=== PATIENT | female | born 1975 | race Caucasian/White ===

== ENCOUNTER 2024-09-22 16:34 | Emergency (ER) | payer OTHER, SELFPAY ==
[2024-09-22 17:31] VITALS: BP 162/94; PULSE 76; RESP 18; TEMP 36.3; O2SAT 100; BMI 35.6
--- NOTE | 2024-09-22 17:36 | EKG_ITS ---
[place] [id number] [place] [id number] Test Date: 2024-09-22 Pat Name: Nevaeh Gonzalez Department: [facility] Room: Gender: Female [employer] Machine: MALLORY KNIGHT : 1975 Requested By: Order Number: [id number] Reading MD: Royce Toirbio MD Measurements Intervals [place] Rate: 67 P: 17 IL: 148 QRS: 35 QRSD: 86 T: 10 QT: 408 QTc: 431 Interpretive Statements Normal sinus rhythm Electronically Signed On 09-22-2024 20:01:04 PDT by Royce Toribio MD
[2024-09-22 18:28] LABS: Add Manual Diff / Slide Review NO; Basophils Absolute Auto 100 /uL (0-100); Basophils Percent Auto 1.3 % (0-2); Eosinophils Absolute Auto 100 /uL (0-450); Eosinophils Percent Auto 1.8 % (2-4); Hematocrit 37.7 % (36-46); Hemoglobin 12.6 g/dL (12.0-16.0); Lymphocytes Absolute Auto 2400 /uL (1100-4500); Lymphocytes Percent Auto 28.9 % (25-40); Mean Corpuscular HGB Conc 33.3 % (30-36); Mean Corpuscular Hemoglobin 29.3 PG (26-34); Mean Corpuscular Volume 87.8 fL (80-100); Monocytes Absolute Auto 400 /uL (0-900); Monocytes Percent Auto 5.4 % (3-14); Neutrophils Absolute Auto 5100 /uL (1500-7000); Neutrophils Percent Auto 62.6 % (50-75); Platelet Count 255 X10^3/uL (150-400); Red Cell Distribution Width 14.1 % (11.6-14.8); White Blood Cell Count 8.2 X10^3/uL (4.5-11.0)
[2024-09-22 18:33] LABS: Alanine Aminotransferase 24 IU/L (<35); Albumin 4.4 g/dL (3.5-5.0); Albumin Globulin Ratio 1.5 (1.0-2.8); Alkaline Phosphatase 70 U/L (38-126); Aspartate Aminotransferase 25 IU/L (14-36); BUN Creatinine Ratio 21.2 (6-22); Bilirubin Total 0.4 mg/dL (0.2-1.3); Blood Urea Nitrogen 18 mg/dL (7-17); Calcium 9.6 mg/dL (8.4-10.2); Carbon Dioxide 23 mmol/L (22-32); Chloride 102 mmol/L (98-107); Estimated Glomerular Filt Rate > 60 mL/min (>60); Globulin 2.9 g/dL (1.7-4.1); Glucose 90 mg/dL (70-100); HEMOLYSIS < 15 (0-50); Lipase 61 U/L (23-300); Potassium 3.8 mmol/L (3.4-5.1); Sodium 136 mmol/L (137-145); Total Protein 7.3 g/dL (6.3-8.2)
[2024-09-22 18:49] VITALS: BP 150/101; PULSE 78; RESP 18; TEMP 36.6; O2SAT 100
[2024-09-23] VITALS (8 sets, daily range): BP systolic 115–142; BP diastolic 63–83; PULSE 66–81; RESP 14–18; O2SAT 97–99
--- NOTE | 2024-09-23 01:25 | ED.ABDPAIN ---
HPI - Abdominal Pain General Chief Complaint: Abdominal Pain Stated Complaint: abd px Time Seen by Provider: 09/23/24 01:25 History of Present Illness HPI narrative: Patient is a healthy 49-year-old female presenting today with left lower quadrant pain. Reports it started while at work she was she was doubled over and quite a bit of pain. No nausea vomiting or diarrhea. Not had any fever. Pain has been pretty constant but coming and going. Denies any sort of flank pain. She also reports that whenever she urinates she is pretty severe pain in her suprapubic area on the left side. But denies painful frequent urination. Related Data Previous Rx's Medication Instructions Recorded amoxicillin 875 mg-potassium 1 tab PO BID #14 tabs 09/23/24 clavulanate 125 mg tablet fluconazole 200 mg tablet 200 mg PO DAILY PRN vaginal 09/23/24 (Diflucan) itching #2 tabs Allergies Allergy/AdvReac Type Severity Reaction Status Date / Time divalproex sodium Allergy Verified 09/22/24 17:31 [From [facility]] Patient History Social History Smoking Status: Former smoker Smoking Status: Former smoker Exam Initial Vital Signs Initial Vital Signs: Vital Signs Temperature 97.3 F L 09/22/24 17:31 Pulse Rate 76 09/22/24 17:31 Respiratory Rate 18 09/22/24 17:31 Blood Pressure 162/94 H 09/22/24 17:31 Pulse Oximetry 100 09/22/24 17:31 Oxygen Delivery Method Room Air 09/22/24 17:31 GENERAL: Alert 49-year-old female and in no acute distress. HEENT: Head atraumatic,EOMI, pupils reactive, face symmetric, moist mucous membranes CARDIOVASCULAR: Regular rate and rhythm without murmurs, rubs or gallops. RESPIRATORY: Breath sounds equal bilaterally, no wheezes rales or rhonchi. ABDOMEN: Soft, tender suprapubic area left lower quadrant no guarding no rebound no distention : No flank pain EXTREMITIES: Normal range of motion, no clubbing or edema. Neurovascularly intact NEUROLOGICAL: Alert and oriented x4.Normal gait and speech. Cranial nerves II through XII grossly intact. SKIN: Warm, dry, no laceration, no petechiae, no rashes or lesions. Course Orders Ordered: ED Orders 09/23/24 01:34 CT abdomen pelvis w con Stat Discontinued Medications Amoxicillin/Clavulanate Potassium (Amoxicillin/Clav 875/125 Mg) 1 tab PO NOW ONE Stop: 09/23/24 02:51 Last Admin: 09/23/24 02:55 Dose: 1 tab Documented By: PARVIZ Ketorolac Tromethamine (Ketorolac 30 Mg/Ml Vial) 15 mg IV NOW ONE Stop: 09/23/24 01:35 Last Admin: 09/23/24 01:38 Dose: 15 mg Documented By: PARVIZ Ondansetron HCl (Ondansetron 4 Mg/2 Ml Inj) 4 mg IV NOW PRN PRN Reason: Nausea And Vomiting Ondansetron HCl (Ondansetron 4 Mg Odt) 4 mg PO NOW PRN PRN Reason: Nausea And Vomiting Vital Signs Vital signs: Vital Signs - 8 hr 09/23/24 00:15 09/23/24 00:15 09/23/24 00:30 Pulse Rate 78 66 Respiratory Rate 18 16 Blood Pressure 139/81 Pulse Oximetry 97 99 Oxygen Delivery Method Room Air Room Air 09/23/24 00:30 09/23/24 01:00 09/23/24 01:00 Pulse Rate 81 Respiratory Rate 16 Blood Pressure 128/76 142/76 H Pulse Oximetry 97 Oxygen Delivery Method Room Air 09/23/24 01:30 09/23/24 01:30 09/23/24 02:00 Pulse Rate 79 81 Respiratory Rate 18 Blood Pressure 139/77 Pulse Oximetry 99 98 Oxygen Delivery Method Room Air 09/23/24 02:17 09/23/24 02:17 09/23/24 02:17 Pulse Rate 70 73 Respiratory Rate 14 16 Blood Pressure 119/74 119/74 Pulse Oximetry 97 97 Oxygen Delivery Method Room Air 09/23/24 02:30 09/23/24 02:30 09/23/24 02:57 Pulse Rate 72 75 Respiratory Rate 17 16 Blood Pressure 115/63 Pulse Oximetry 97 98 Oxygen Delivery Method Room Air Room Air 09/23/24 02:57 Pulse Rate Respiratory Rate Blood Pressure 142/83 H Pulse Oximetry Oxygen Delivery Method MDM - Abdominal Pain Lab Data 09/22/24 18:10 09/22/24 18:10 Labs: Lab Results 09/22/24 Range/Units 18:10 WBC 8.2 (4.5-11.0) X10^3/uL RBC 4.30 (4.0-5.2) X10^6/uL Hgb 12.6 (12.0-16.0) g/dL Hct 37.7 (36-46) % MCV 87.8 (80-100) fL MCH 29.3 (26-34) PG MCHC 33.3 (30-36) % RDW 14.1 (11.6-14.8) % Plt Count 255 (150-400) X10^3/uL Neut % (Auto) 62.6 (50-75) % Lymph % (Auto) 28.9 (25-40) % [place] % (Auto) 5.4 (3-14) % Eos % (Auto) 1.8 L (2-4) % Baso % (Auto) 1.3 (0-2) % Neut # (Auto) 5100 (1687-6181) /uL Lymph # (Auto) 2400 (9191-8329) /uL [place] # (Auto) 400 (0-900) /uL Eos # (Auto) 100 (0-450) /uL Baso # (Auto) 100 (0-100) /uL Sodium 136 L (137-145) mmol/L Potassium 3.8 (3.4-5.1) mmol/L Chloride 102 (98-107) mmol/L Carbon Dioxide 23 (22-32) mmol/L BUN 18 H (7-17) mg/dL Creatinine 0.85 (0.52-1.04) mg/dL Estimated GFR > 60 (>60) mL/min BUN/Creatinine Ratio 21.2 (6-22) Glucose 90 (70-100) mg/dL Calcium 9.6 (8.4-10.2) mg/dL Total Bilirubin 0.4 (0.2-1.3) mg/dL AST 25 (14-36) IU/L ALT 24 (<35) IU/L Alkaline Phosphatase 70 (38-126) U/L Total Protein 7.3 (6.3-8.2) g/dL Albumin 4.4 (3.5-5.0) g/dL Globulin 2.9 (1.7-4.1) g/dL Albumin/Globulin Ratio 1.5 (1.0-2.8) Lipase 61 (23-300) U/L Point of care testing: Point of Care Testing Test Results Negative Urine Dip Bedside Urine Glucose Negative Bedside Urine Bilirubin - Negative Bedside Urine Ketone - Negative Urine Specific [place] 1.010 Bedside Urine Occult Blood - Negative Bedside Urine pH 6.0 Bedside Urine Protein - Negative Bedside Urine Urobilinogen - Negative Bedside Urine Nitrite - Negative Bedside Urine Leukocytes - Negative Esterase Imaging Data CT scan - abdomen/pelvis: Radiologist's Impression: Preliminary report pericolonic inflammatory changes adjacent to the sigmoid colon with central fat. Findings are compatible with epiploic appendagitis. Gas within nondependent portion of the bladder findings may be related to recent instrumentation infection with gas producing organism or colovesicular fistula considered less likely. Incidental findings as detailed MDM Narrative Medical decision making narrative: Patient 49-year-old female presenting today with left lower quadrant pain and suprapubic pain. She reports that she was doubled over earlier but now abdomen is soft but still mildly tender Blood work is reviewed CBC does not show any leukocytosis or anemia CMP electrolyte abnormality bilirubin liver enzyme within normal limits normal lipase Area urinalysis negative for UTI CT shows epiploic appendagitis. Patient received Toradol and Augmentin. Toradol seemed to help a lot with the pain. At this time we will treat with antibiotics. Patient was given strict return precautions Discharge Plan Departure Patient Disposition: Home Clinical Impression: Epiploic appendagitis Activity Restrictions/Additional Instructions: *You have been diagnosed with epiploic appendagitis *What to do: At this time make sure you are staying hydrated. May eat as tolerated but may need to eat fiber foods *Continue to take medications as directed Augmentin 875 mg twice a day for 7 *Follow up with your primary care provider in 2-3 days or call [phone] *Return to ER if you should have increasing pain fever change in urination or any new, worsening or concerning symptoms Prescriptions: New amoxicillin-pot clavulanate 875-125 mg tablet 1 tab PO BID Qty: 14 0RF fluconazole [Diflucan] 200 mg tablet 200 mg PO DAILY PRN (Reason: vaginal itching) Qty: 2 0RF Referrals: Miscellaneous,Doctor, [Primary Care Provider] - Stand Alone Forms: Patient Portal/API/Survey, Work Release Note
--- NOTE | 2024-09-23 01:34 | DI.CT.S_ITS ---
PROCEDURE: CT ABDOMEN PELVIS W CON INDICATIONS: LLQ pain TECHNIQUE: After the administration of intravenous contrast, axial sections acquired from the lung bases to the pubic symphysis. Coronal and sagittal reformats were performed. For radiation dose reduction, the following was used: automated exposure control, adjustment of mA and/or kV according to patient size. COMPARISON: None. FINDINGS: Image quality: Diagnostic. Lower Chest: No significant findings. ABDOMEN: Liver: No solid mass. Gallbladder: No radiopaque gallstones or wall thickening. Biliary ducts: No biliary dilation. Pancreas: No ductal dilation. Spleen: Size is within normal limits. Adrenal Glands: No adrenal nodules. Kidneys and Ureters: No hydronephrosis. No solid mass. No complex renal cystic lesion which requires follow up. Stomach and Bowel: Fat stranding adjacent to the sigmoid colon in the left pelvis, (3/44). No extraluminal gas. No fluid collection. No significant diverticulosis. The appendix is absent. No small bowel obstruction. The stomach is within normal limits. Peritoneum: No large volume of ascites. No pneumoperitoneum. Ventral Wall: No significant ventral hernia. Abdominal Nodes: No retroperitoneal or mesenteric adenopathy by size criteria. Vessels: Aorta and inferior vena cava are normal in size. PELVIS: Pelvic Organs: Trace free fluid in the pelvis. Mild pelvic descent. Anteverted uterus. Bladder: No bladder wall thickening. There is stranding adjacent to the urinary bladder. There is air within the urinary bladder. Pelvic Nodes: No enlarged lymph nodes. Miscellaneous: No inguinal hernias are seen. Bones: No aggressive osseous abnormality. IMPRESSION: 1. Inflammatory change adjacent to the sigmoid colon. Findings suggestive of epiploic appendagitis. 2. There is stranding adjacent to the urinary bladder. This could be reactive due to the adjacent inflammatory change. However, difficult to exclude a cystitis. There is a small focus of gas in the urinary bladder which could be due to catheterization. Gas-forming organism is difficult to exclude. 3. No significant diverticulosis. The appendix is absent. This report is concordant with the overnight preliminary interpretation. Dictated by: Saravanan oCllazo M.D. on 09/23/2024 at 8:14 Approved by: Saravanan Collazo M.D. on 09/23/2024 at 8:22
[2024-09-23] MEDS: KETOROLAC 30 MG/ML VIAL 15 MG IV (01:38)
--- NOTE | 2024-09-23 01:41 | PC.NURSE ---
Pt taken to imaging via ED stretcher with microbiology quality control technician
[2024-09-23] MEDS: AMOXICILLIN/CLAV 875/125 MG 1 TAB PO (02:55)
== END 2024-09-23 03:06 | disposition home or self-care (01) ==
PROVIDERS: Emergency Medicine; Emergency Provider Emergency Medicine
DX: K63.89 Other specified diseases of intestine (principal); R10.32 Left lower quadrant pain
CPT/HCPCS: 74177; 80053; 81003; 81025; 83690; 85025; 93005; 93010; 96374; 99284; J1885; Q9967